=== PATIENT | male | born 1940 ===

== ENCOUNTER 2022-04-18 10:35 | Emergency (ER) | payer MEDICARE, OTHER ==
[~2022-04-18] VITALS: Ht 177.8 cm; Wt 108.9 kg
[~2022-04-18 10:35] MED LIST: ALLO300; ASPI81CH; FURO20; FURO40 PO; Klor-Con M1010 MEQ; LOSARTAN-HCTZ1 EAC2; METO100ER PO; Potassium Chlo10 ME1
[2022-04-18] MEDS ORDERED: ATOR10 PO (11:01)
[2022-04-18] MEDS ORDERED: LOSARTAN-HCTZ1 EAC6 PO (11:01)
[2022-04-18] MEDS ORDERED: ALLO300 PO (11:02)
[2022-04-18] MEDS ORDERED: XARELTO15 MG PO (11:56)
[2022-04-18] MEDS ORDERED: CEPH500 PO (11:56)
== END 2022-04-18 12:40 | disposition home or self-care (01) ==
LOC: ER 10:35
DX: I80.01 Phlebitis and thrombophlebitis of superficial vessels of right lower extremity (principal); I10 Essential (primary) hypertension; Z87.891 Personal history of nicotine dependence; Z79.899 Other long term (current) drug therapy; Z79.82 Long term (current) use of aspirin
CPT/HCPCS: 93971

== ENCOUNTER 2023-05-15 09:35 | Emergency (ER) | payer MEDICARE, OTHER ==
[~2023-05-15] VITALS: Ht 177.8 cm; Wt 108.9 kg
[~2023-05-15 09:35] MED LIST changes: +ALLO300 PO; +ATOR10 PO; +CEPH500 PO; +LOSARTAN-HCTZ1 EAC6 PO; +XARELTO15 MG PO
[2023-05-15] MEDS ORDERED: ALLO300 PO (09:50)
[2023-05-15 11:10] VITALS: BP 180/76
== END 2023-05-15 11:12 | disposition home or self-care (01) ==
LOC: ER 09:35
DX: M79.604 Pain in right leg (principal); I10 Essential (primary) hypertension; M10.9 Gout, unspecified; Z79.899 Other long term (current) drug therapy; Z87.891 Personal history of nicotine dependence
CPT/HCPCS: 93971; 99283-25